=== PATIENT | male | born 1995 | race Caucasian/White ===

== ENCOUNTER 2024-11-02 13:41 | Emergency (ER) | payer MEDICAID ==
[~2024-11-02] VITALS: Ht 182.9 cm; Wt 99.8 kg
[2024-11-02 13:47] VITALS: BP 109/73; TEMP 98
[2024-11-02] MEDS ORDERED: TAMS-12 PO (14:15)
[2024-11-02 14:35] LABS: APPEARANCE,URINE Clear (CLEAR); BILIRUBIN,URINE NEGATIVE (NEGATIVE); BLOOD, URINE NEGATIVE Ery/uL (NEGATIVE); COLOR,URINE YELLOW (YELLOW); KETONES,URINE NEGATIVE (NEGATIVE); LEUKOCYTE ESTERASE ,URINE NEGATIVE (NEGATIVE); NITRITE, URINE NEGATIVE (NEGATIVE); PROTEIN,URINE NEGATIVE (NEGATIVE); UGLUCOSE NEGATIVE (NEGATIVE); UROBILINOGEN,URINE 0.2 EU/dL (0.2)
[2024-11-02 14:36] VITALS: O2SAT 95
== END 2024-11-02 14:36 | disposition home or self-care (01) ==
LOC: ER 13:48
DX: R33.8 Other retention of urine (principal); R30.0 Dysuria; N40.1 Benign prostatic hyperplasia with lower urinary tract symptoms; Z76.0 Encounter for issue of repeat prescription; Z60.2 Problems related to living alone

== ENCOUNTER 2025-02-03 12:05 | Emergency (ER) | payer MEDICAID ==
[~2025-02-03] VITALS: Ht 182.9 cm; Wt 86.2 kg
[~2025-02-03 12:05] MED LIST: TAMS-12 PO
[2025-02-03] MEDS ORDERED: TAMS-12 PO (12:41)
[2025-02-03 12:50] VITALS: BP 121/73; TEMP 98.2; O2SAT 99
== END 2025-02-03 12:50 | disposition home or self-care (01) ==
LOC: ER 12:05
DX: N40.0 Benign prostatic hyperplasia without lower urinary tract symptoms (principal); Z60.2 Problems related to living alone; Z76.0 Encounter for issue of repeat prescription

== ENCOUNTER 2025-03-09 15:07 | Emergency (ER) | payer MEDICAID ==
[~2025-03-09] VITALS: Ht 188 cm; Wt 90.7 kg
[2025-03-09 15:38] VITALS: BP 112/59; TEMP 98.1
[2025-03-09] MEDS ORDERED: TAMS-12 PO (16:07)
[2025-03-09 16:34] VITALS: O2SAT 99
== END 2025-03-09 16:34 | disposition home or self-care (01) ==
LOC: ER 15:12
DX: N40.0 Benign prostatic hyperplasia without lower urinary tract symptoms (principal); Z76.0 Encounter for issue of repeat prescription

== ENCOUNTER 2025-07-19 17:58 | Emergency (ER) | payer BC, MEDICAID ==
[~2025-07-19] VITALS: Ht 190.5 cm; Wt 90.7 kg
[2025-07-19 18:06] VITALS: BP 118/71; TEMP 98.6; O2SAT 98
[2025-07-19] MEDS ORDERED: TAMS-12 PO (19:10)
[2025-07-19 19:53] LABS: APPEARANCE,URINE CLEAR (CLEAR); BLOOD, URINE NEGATIVE Ery/uL (NEGATIVE); LEUKOCYTE ESTERASE ,URINE NEGATIVE (NEGATIVE); NITRITE, URINE NEGATIVE (NEGATIVE); UGLUCOSE NEGATIVE (NEGATIVE)
[2025-07-19 20:39] LABS: ADD URINE CULTURE NO; SQUAMOUS EPITHELIAL CELL,UR None Seen /HPF (None Seen)
== END 2025-07-19 19:12 | disposition home or self-care (01) ==
LOC: ER 18:05
DX: N40.0 Benign prostatic hyperplasia without lower urinary tract symptoms (principal); R39.198 Other difficulties with micturition; Z60.2 Problems related to living alone; Z79.899 Other long term (current) drug therapy
CPT/HCPCS: 81001; 87086-TC